=== PATIENT | female | born 1980 | race African-American/Black ===

== ENCOUNTER 2017-05-22 10:11 | Emergency (ER) | payer OTHER ==
[~2017-05-22] VITALS: Ht 170.2 cm; Wt 65.0 kg
[~2017-05-22 10:11] MED LIST: NAPR550 PO; OXYC-360 PO; PERC5TAB12 PO; PREN0.01 PO
[2017-05-22 10:14] VITALS: BP 117/59; PULSE 91; RESP 15; TEMP 98.4; O2SAT 100
--- NOTE | 2017-05-22 11:40 | PD ---
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 However she has done that type of work for years over a decade or so. Patient states that the she describes the pain as crampy and soreness over the past few days rates it 5 out of 10, worsened by activity lifting or movement. Improved by resting Allergies Levaquin PFSH Past Medical History Diminished Hearing: No ?: Not : 3 Para: 2 Miscarriage: 1 : 0 Tubal Ligation: Yes Past Surgical History Section: Yes (X2) Gynecologic Surgery: Yes Other Surgery: Yes (BLEEDING AT C/S SITE, EMERGENCY SURGERY) Social History Alcohol Use: No Tobacco Use: Yes (APPROX 1/2 PPD) Substance Use: No (DENIES) Allergies-Medications (Allergen,Severity, Reaction): Coded Allergies: levofloxacin (Unverified Allergy, Severe, 05/22/17) Reported Meds & Prescriptions Reported Meds & Active Scripts Active Percocet 5/325 (Oxycodone/Acetaminophen) 5 Mg/325 Mg Tab 1 Tab PO Q6H PRN Anaprox Ds (Naproxen Sodium) 550 Mg Tab 550 Mg PO BID PRN Reported Percocet (Oxycodone/Acetaminophen) 5 Mg/325 Mg Tab 1 Tab PO Q4H PRN FOR PAIN Vit ( Plus) (Prenat Multivit/[place]/Iron/Folic Ac) Tab 1 Tab PO DAILY Review of Systems General / Constitutional: No: Fever Eyes: No: Visual changes HENT: No: Headaches Cardiovascular: No: Chest Pain or Discomfort Respiratory: No: Shortness of Breath Gastrointestinal: No: Abdominal Pain Genitourinary: No: Dysuria Musculoskeletal: Positive: Myalgias, Pain Skin: No Rash Neurologic: No: Weakness Psychiatric: No: Depression Endocrine: No: Polydipsia Hematologic/Lymphatic: No: Easy Bruising Physical Exam Narrative GENERAL: SKIN: Warm and dry. HEAD: Atraumatic. Normocephalic. EYES: Pupils equal and round. No scleral icterus. No injection or drainage. ENT: No nasal bleeding or discharge. Mucous membranes pink and moist. NECK: Trachea midline. No JVD. CARDIOVASCULAR: Regular rate and rhythm. RESPIRATORY: No accessory muscle use. Clear to auscultation. Breath sounds equal bilaterally. GASTROINTESTINAL: Abdomen soft, non-tender, nondistended. MUSCULOSKELETAL: Extremities without clubbing, cyanosis, or edema. No obvious deformities. Point tenderness over the right rhomboid, and over the right leigh ann- trapezius as well as right supraspinatus muscle NEUROLOGICAL: Awake and alert. No obvious cranial nerve deficits. Motor grossly within normal limits. Five out of 5 muscle strength in the arms and legs. Normal speech. PSYCHIATRIC: Appropriate mood and affect; insight and judgment normal. Data Data Last Documented VS Vital Signs Date Time Temp Pulse Resp B/P (MAP) Pulse Ox O2 Delivery O2 Flow Rate FiO2 05/22/17 10:14 98.4 91 15 117/59 (78) 100 Orders Orders Spine, Cervical - Ltd (Ap&Lat) (05/22/17 11:42) Orphenadrine Inj (Norflex Inj) (05/22/17 12:45) Ketorolac Inj (Toradol Inj) (05/22/17 12:45) MDM Medical Decision Making Medical Screen Exam Complete: Yes Emergency Medical Condition: Yes Medical Record Reviewed: Yes Differential Diagnosis muscle strain v spasm v cervical fx/dislocation Narrative Course X-ray does not show any evidence of cervical fracture or dislocation. The patient's pain was relieved after Norflex and Toradol, patient will be discharged home on flexeril and Naprosyn Diagnosis Primary Impression: Trapezius/rhomboid strain Patient Instructions: General Instructions, Muscle Strain (ED) Scripts Naproxen DR (Naproxen EC) 375 Mg Tabdr 375 MG PO BID, #20 TAB 0 Refills Prov: David Limon MD 05/22/17 Cyclobenzaprine (Flexeril) 10 Mg Tab 10 MG PO TID for Muscle Spasm, #30 TAB 0 Refills Prov: David Limon MD 05/22/17 Disposition: 01 DISCHARGE HOME David Limon MD May 22, 2017 11:40
--- NOTE | 2017-05-22 12:33 | RADRPT ---
EXAM DATE/TIME: 05/22/2017 11:53 [facility] COMPARISON: No previous studies available for comparison. INDICATIONS : Neck pain down shoulder. No trauma. MEDICAL HISTORY : None. SURGICAL HISTORY : None. ENCOUNTER: Initial ACUITY: 4 - 6 days PAIN SCORE: 7/10 LOCATION: Right neck FINDINGS: Two projection examination was performed. There is normal alignment and curvature of the vertebral b odies down to the level of C7. No evidence of fracture or subluxation. Vertebral body height is gagan ntained. The disc spaces are maintained. The prevertebral soft tissues are of normal thickness. Th e atlanto-axial articulation is intact. CONCLUSION: 1. Negative examination. Ozzie Beauchamp MD on May 22, 2017 at 12:31 Board Certified Radiologist. This report was verified electronically.
[2017-05-22] MEDS ORDERED: NAPR375T4 PO (12:38)
[2017-05-22] MEDS ORDERED: CYCL10TA PO (12:38)
[2017-05-22] MEDS ORDERED: KETOROLAC TROMETHAMINE 60 MG/2 ML (IM) VIAL IM ONE (12:45)
[2017-05-22] MEDS ORDERED: ORPHENADRINE INJ 60 MG/2 ML AMP IM ONE (12:45)
[2017-05-22 14:00] VITALS: RESP 16
== END 2017-05-22 14:10 | disposition home or self-care (01) ==
LOC: NEPD 10:11
DX: S29.012A Strain of muscle and tendon of back wall of thorax, initial encounter (principal); F17.200 Nicotine dependence, unspecified, uncomplicated; X58.XXXA Exposure to other specified factors, initial encounter
CPT/HCPCS: 72040; 96372; 99283; J1885; J2360